=== PATIENT | male | born 1945 | race Caucasian/White ===

== ENCOUNTER 2016-04-04 12:08 | Outpatient (CLI) | payer MEDICARE | END 2016-04-04 12:09 | disposition home or self-care (01) | DX: I50.9 Heart failure, unspecified (principal); D64.9 Anemia, unspecified; Z95.2 Presence of prosthetic heart valve; I48.91 Unspecified atrial fibrillation; Z79.01 Long term (current) use of anticoagulants ==

== ENCOUNTER 2016-05-16 12:45 | Outpatient (CLI) | payer MEDICARE | END 2016-05-16 12:46 | disposition home or self-care (01) | DX: I50.9 Heart failure, unspecified (principal); D64.9 Anemia, unspecified; Z95.2 Presence of prosthetic heart valve; I48.91 Unspecified atrial fibrillation; Z79.01 Long term (current) use of anticoagulants ==

== ENCOUNTER 2016-06-13 09:47 | Outpatient (CLI) | payer MEDICARE | END 2016-06-13 09:48 | disposition home or self-care (01) | DX: I48.91 Unspecified atrial fibrillation (principal); Z79.01 Long term (current) use of anticoagulants ==

== ENCOUNTER 2016-07-01 07:59 | Outpatient (CLI) | payer MEDICARE ==
[2016-07-01 11:23] LABS: INR 4.1 (0.8-1.2); PT - PROTHROMBIN TIME 47.1 secs (9.9-12.6)
[2016-07-01 11:30] LABS: CALCIUM 9.1 mg/dL (8.5-10.3); CREATININE 1.1 mg/dL (0.6-1.2); POTASSIUM 3.4 mmol/L (3.5-5.0)
== END 2016-07-01 08:00 | disposition home or self-care (01) ==
LOC: LAB.F 07:59
PROVIDERS: ATTEND Internal Medicine
DX: I48.91 Unspecified atrial fibrillation (principal)
CPT/HCPCS: 36415; 80048; 85610

== ENCOUNTER 2016-07-14 08:07 | Outpatient (CLI) | payer MEDICARE ==
[2016-07-14 11:38] LABS: CREATININE 1.1 mg/dL (0.6-1.2); POTASSIUM 3.6 mmol/L (3.5-5.0)
== END 2016-07-14 08:08 | disposition home or self-care (01) ==
LOC: LAB.F 08:07
PROVIDERS: ATTEND Internal Medicine
DX: I48.91 Unspecified atrial fibrillation (principal)
CPT/HCPCS: 36415; 80048; 85610

== ENCOUNTER 2016-07-30 00:32 | Emergency (ER) | payer MEDICARE ==
--- NOTE | 2016-07-30 00:40 | ED Physician Documentation ---
PD HPI HEENT - Stated complaint Stated Complaint: NOSEBLEED - History obtained from History obtained from: Patient - History of Present Illness Timing - onset: Enter time (10:30), Today Timing - duration: Hours Timing - details: Gradual onset, Intermittant Pain level max: 0 Pain level now: 0 Location: Nose Improves: Nothing Worsens: Other (no apparent exacerbating factors) Associated symptoms: No: Congestion Similar symptoms before: Other (has had epistaxis in the past that didn't respond to cautery and required nasal packing) Recently seen: Not recently seen - Additional information Additional information: Spontaneous left nare epistaxis started 10:30 this morning, stopped after pressure was applied but this evening the bleeding started again. Patient is on coumadin for mechanical cardiac valve, recent INR (07/14) was 3 Review of Systems Nose: reports: Epistaxis PD PAST MEDICAL HISTORY - Past Medical History Cardiovascular: Congestive heart failure Respiratory: Shortness of breath Neuro: None Endocrine/Autoimmune: None GI: GERD : Renal insuffiency, Frequency HEENT: None Psych: None Musculoskeletal: Osteoarthritis, Chronic back pain Derm: None - Past Surgical History Cardiovascular: Valve replacement - Present Medications Home Medications: Ambulatory Orders Medication Instructions Recorded Confirmed Aspirin [Aspirin EC] 81 mg PO DAILY 12/22/14 07/30/16 Digoxin 62.5 mcg PO DAILY 12/22/14 07/30/16 Torsemide 20 mg PO DAILY 12/22/14 07/30/16 Warfarin Sodium 5 mg PO 12/22/14 09/25/15 Acetaminophen 500 mg PO BID 04/13/15 07/30/16 Ferrous Gluconate 324 mg PO DAILY 07/30/16 07/30/16 Melatonin/Pyridoxine [Melatonin 5 1 tab PO DAILY PM 07/30/16 07/30/16 mg Tablet] Warfarin Sodium [Jantoven] 07/30/16 - Allergies Allergies/Adverse Reactions: Allergies Allergy/AdvReac Type Severity Reaction Status Date / Time Sulfa (Sulfonamide Allergy Rash Verified 09/25/15 05:24 Antibiotics) - Social History Does the pt smoke?: No Smoking Status: Never smoker Does the pt drink ETOH?: No Does the pt have substance abuse?: No - Immunizations Immunizations are current?: Yes - POLST Patient has POLST: No PD ED PE NORMAL - Vitals Vital signs reviewed: Yes - General General: Alert and oriented X 3, No acute distress, Well developed/nourished - HEENT HEENT: Pharynx benign PD ED PE EXPANDED - HEENT HEENT: Left nares epistaxis (slow, steady bleeding from visualized site left nare, anterior septum) Results - Vitals Vitals: Vital Signs - 24 hr 07/30/16 07/30/16 00:36 01:55 Temperature 36.5 C 36.4 C L Heart Rate 78 67 Respiratory 20 15 Rate Blood Pressure 144/72 H 131/61 H O2 Saturation 90 L 92 Oxygen O2 Source Room air Procedures - Epistaxis Site: Left Preparation: Clots removed, Afrin, Lidocaine Treatment: Silver Nitrate Other: Observed - no bleeding, Pt tolerated well PD MEDICAL DECISION MAKING - ED course Complexity details: reviewed old records, re-evaluated patient, considered differential, d/w patient, d/w family Departure - Departure Disposition: 01 Home, Self Care Clinical Impression: Epistaxis Condition: Good Instructions: ED Nosebleed Follow-Up: Maximo Treviño MD [Primary Care Provider] - Discharge Date/Time: 07/30/16 02:20
[2016-07-30] MEDS ORDERED: LIDOCAINE VISCOUS 2% 15 ML UDC MM STA (00:50)
[2016-07-30] MEDS ORDERED: OXYMETAZOLINE NASAL SPRAY NAS STA (00:50)
[2016-07-30] MEDS ORDERED: TRANEXAMIC ACID 1,000 MG/10 ML VIAL NAS STA (00:51)
[2016-07-30] MEDS ORDERED: OXYMETAZOLINE NASAL SPRAY NAS ONE (00:54)
[2016-07-30] MEDS ORDERED: LIDOCAINE VISCOUS 2% 15 ML UDC MM ONE (00:54)
[2016-07-30] MEDS ORDERED: TRANEXAMIC ACID 1,000 MG/10 ML VIAL ONE (00:54)
[2016-07-30 01:56] VITALS: BP 131/61
== END 2016-07-30 02:20 | disposition home or self-care (01) ==
LOC: ED 00:32
DX: R04.0 Epistaxis (principal); Z95.2 Presence of prosthetic heart valve; Z79.01 Long term (current) use of anticoagulants; Z79.82 Long term (current) use of aspirin
CPT/HCPCS: 30901; 99282; 99283; A9270

== ENCOUNTER 2016-08-01 10:07 | Outpatient (CLI) | payer MEDICARE ==
[2016-08-01 19:06] LABS: CALCIUM 8.8 mg/dL (8.5-10.3); CREATININE 0.9 mg/dL (0.6-1.2); POTASSIUM 3.4 mmol/L (3.5-5.0)
== END 2016-08-01 10:08 | disposition home or self-care (01) ==
LOC: LAB.F 10:07
PROVIDERS: ATTEND Internal Medicine
DX: I48.91 Unspecified atrial fibrillation (principal)
CPT/HCPCS: 36415; 80048; 85610

== ENCOUNTER 2016-08-04 18:22 | Emergency (ER) | payer MEDICARE ==
--- NOTE | 2016-08-04 19:46 | ED Physician Documentation ---
PD HPI HEENT - Stated complaint Stated Complaint: NOSE BLEED - Chief complaint Chief Complaint: Heent - History obtained from History obtained from: Patient - History of Present Illness Timing - onset: How many hours ago (2-3), Today Timing - duration: Hours Timing - details: Abrupt onset, Still present, Waxing and waning Location: Nose (left nostril) Associated symptoms: Headache (somef rontal). No: Fever, Congestion Recently seen: Emergency Dept (had similar couple days ago and had silver nitrate and afrin which stopped the bleeding. No packing inserted. He did okay and then bleeding started again today. Presume time for wet clot to loosen and fall off, as bleeding on same side.) Review of Systems Constitutional: denies: Fever, Chills Nose: reports: Epistaxis (again today). denies: Rhinorrhea / runny nose, Congestion Throat: denies: Sore throat Cardiac: denies: Chest pain / pressure, Palpitations Respiratory: denies: Dyspnea, Cough GI: denies: Nausea, Vomiting Psychiatric: denies: Homicidal Endocrine: reports: Easy bruising / bleeding. denies: Weight loss PD PAST MEDICAL HISTORY - Past Medical History Past Medical History: No Cardiovascular: Congestive heart failure Respiratory: Shortness of breath Neuro: None Endocrine/Autoimmune: None GI: GERD : Renal insuffiency, Frequency HEENT: None Psych: None Musculoskeletal: Osteoarthritis, Chronic back pain Derm: None - Past Surgical History Past Surgical History: No Cardiovascular: Valve replacement - Present Medications Home Medications: Ambulatory Orders Medication Instructions Recorded Confirmed Aspirin [Aspirin EC] 81 mg PO DAILY 12/22/14 08/04/16 Digoxin 62.5 mcg PO DAILY 12/22/14 08/04/16 Torsemide 20 mg PO DAILY 12/22/14 08/04/16 Warfarin Sodium 5 mg PO .FREQ 12/22/14 08/04/16 Acetaminophen 500 mg PO BID 04/13/15 08/04/16 Ferrous Gluconate 324 mg PO DAILY 07/30/16 08/04/16 Melatonin/Pyridoxine [Melatonin 5 1 tab PO DAILY PM 07/30/16 08/04/16 mg Tablet] Warfarin Sodium [Jantoven] 07/30/16 - Allergies Allergies/Adverse Reactions: Allergies Allergy/AdvReac Type Severity Reaction Status Date / Time Sulfa (Sulfonamide Allergy Rash Verified 08/04/16 18:30 Antibiotics) - Social History Does the pt smoke?: No Smoking Status: Never smoker Does the pt drink ETOH?: No Does the pt have substance abuse?: No - Immunizations Immunizations are current?: Yes - POLST Patient has POLST: No PD ED PE NORMAL - Vitals Vital signs reviewed: Yes - General General: Alert and oriented X 3, Well developed/nourished, Other (frail appearing. ) - HEENT HEENT: Atraumatic, Other (left nostril with some dried blood and mild dribble of new blood. He does spit up some purple clots that come down from back nasopharynx. ) - Neck Neck: Supple, no meningeal sign, No adenopathy - Cardiac Cardiac: RRR, Other (mechanical valve sounds noted left chest. ) - Respiratory Respiratory: Clear bilaterally - Abdomen Abdomen: Soft, Non tender - Derm Derm: Normal color, Warm and dry - Neuro Neuro: Alert and oriented X 3, feed adviser 2-12 intact, No motor deficit, No sensory deficit Results - Vitals Vitals: Vital Signs - 24 hr 08/04/16 08/04/16 18:29 21:39 Temperature 36.8 C Heart Rate 93 87 Respiratory 24 20 Rate Blood Pressure 139/71 H 186/79 H O2 Saturation 90 L 100 Oxygen O2 Source Room air - Labs Labs: Laboratory Tests 08/04/16 19:55 Whole Blood INR 3.9 H Procedures - Epistaxis Site: Left Preparation: Clots removed, Afrin, Lidocaine, Clamp / pressure applied, Other ( TXA used with initial cotton balls and afrin for packing first time and then for merocel expansion.) Treatment: Silver Nitrate, Packing inserted, None needed - resolved Other: Observed - no bleeding, Pt tolerated well, O2 sat WNL PD MEDICAL DECISION MAKING - ED course Complexity details: reviewed old records, reviewed results (INR slightly high and will have him hold tonight dose. ), re-evaluated patient (bleeding seems to still be stopped and will discharge home. ), considered differential, d/w patient Departure - Departure Disposition: 01 Home, Self Care Clinical Impression: Epistaxis Condition: Stable Record reviewed to determine appropriate education?: Yes Instructions: ED Nasal Packing Anterior Removable Follow-Up: Maximo Treviño MD [Primary Care Provider] - Comments: Leave the packing in nostril. Return here in 2-[address] Roof Monday for removal of it. If recurrent bleeding, then use afrin to packing and pinch it for 15-20 minutes. Return if it does not stop. Hold your COumadin dose tonight, then continue usual after that. Discharge Date/Time: 08/04/16 21:40
[2016-08-04] MEDS ORDERED: TRANEXAMIC ACID 1,000 MG/10 ML VIAL NAS STA (19:47)
[2016-08-04] MEDS ORDERED: OXYMETAZOLINE NASAL SPRAY NAS STA (19:47)
[2016-08-04] MEDS ORDERED: OXYMETAZOLINE NASAL SPRAY NAS ONE (19:57)
[2016-08-04] MEDS ORDERED: TRANEXAMIC ACID 1,000 MG/10 ML VIAL ONE (19:57)
[2016-08-04] MEDS ORDERED: ACETAMINOPHEN 325 MG TABLET PO ONE (20:30)
[2016-08-04 21:40] VITALS: BP 186/79
== END 2016-08-04 21:40 | disposition home or self-care (01) ==
LOC: ED 18:22
DX: R04.0 Epistaxis (principal); Z95.2 Presence of prosthetic heart valve; Z79.01 Long term (current) use of anticoagulants; Z79.82 Long term (current) use of aspirin
CPT/HCPCS: 30901; 85610; 99283; A9270

== ENCOUNTER 2016-08-29 12:34 | Outpatient (CLI) | payer MEDICARE ==
[2016-08-29 19:47] LABS: CALCIUM 8.7 mg/dL (8.5-10.3); CREATININE 1.2 mg/dL (0.6-1.2); POTASSIUM 3.5 mmol/L (3.5-5.0)
== END 2016-08-29 12:35 | disposition home or self-care (01) ==
LOC: LAB.F 12:34
PROVIDERS: ATTEND Internal Medicine
DX: I48.91 Unspecified atrial fibrillation (principal)
CPT/HCPCS: 36415; 80048; 85610

== ENCOUNTER 2016-09-05 09:42 | Outpatient (CLI) | payer MEDICARE ==
[2016-09-05 19:18] LABS: CALCIUM 8.6 mg/dL (8.5-10.3); CREATININE 1.6 mg/dL (0.6-1.2); POTASSIUM 4.1 mmol/L (3.5-5.0)
== END 2016-09-05 09:43 | disposition home or self-care (01) ==
LOC: LAB.F 09:42
PROVIDERS: ATTEND Internal Medicine
DX: I48.91 Unspecified atrial fibrillation (principal)
CPT/HCPCS: 36415; 80048; 85610

== ENCOUNTER 2016-09-06 11:10 | Outpatient (CLI) | payer MEDICARE | END 2016-09-06 11:11 | disposition home or self-care (01) | LOC: LAB.F 11:10 | PROVIDERS: ATTEND Internal Medicine | DX: I50.9 Heart failure, unspecified (principal) | CPT/HCPCS: 36415; 83880 ==